=== PATIENT | female | born 1940 | race Hispanic/Latino ===

== ENCOUNTER → 2023-05-20 | Outpatient (CLI) | payer MEDICARE ==
[~2023-05-20] MED LIST: AEC81 PO; AMLO-258 PO; FURO40TA5 PO; IOHEXOL 350 MG/ML 100ML INFUS..BTL IV ONE; IRBE300T18 PO; METOPROLOL TARTRATE 1 MG/ML 5ML VIAL IV ONE; MONT-39 PO; SIMV10TA97 PO
== END | disposition home or self-care (01) ==
LOC: RAH 08:04
PROVIDERS: ATTEND Internal Medicine Cardiovascular Disease
DX: I20.9 Angina pectoris, unspecified (principal)
CPT/HCPCS: 75574; J3490; Q9967

== ENCOUNTER → 2025-01-30 | Outpatient (CLI) | payer MEDICARE ==
[~2025-01-30] MED LIST changes: -IOHEXOL 350 MG/ML 100ML INFUS..BTL IV ONE; -IRBE300T18 PO; +IRBE300T26 PO; -METOPROLOL TARTRATE 1 MG/ML 5ML VIAL IV ONE
--- NOTE | 2025-01-30 14:40 | HMCIMG ---
CT ABDOMEN PELVIS WITHOUT CONTRAST Clinical Information: Other microscopic hematuria PROTOCOL: Routine noncontrast helical scanning of the abdomen and pelvis was performed at 5mm collimation. Findings: No evidence of nephro or ureterolithiasis is found. No hydronephrosis or ureteral dilatation is seen. The lung bases are clear. The spleen, pancreas, gallbladder and adrenal glands are unremarkable. The liver is unremarkable. It shows no focal masses. The appendix is unremarkable. There is diverticulosis of the colon particularly involving the sigmoid colon. There are no acute inflammatory changes to suggest diverticulitis. The small and large bowel and pelvic viscera are otherwise unremarkable. The bony and vascular structures are unremarkable for the patient's age. IMPRESSION: Diverticulosis of the colon particularly involving the sigmoid. Otherwise negative CT SCAN OF THE ABDOMEN AND PELVIS. NO RENAL STONES. NO ACUTE PATHOLOGY OR INFLAMMATION SEEN. This study was performed using dose reduction techniques to include automated exposure control and/or adjustment of the mA and/or kV according to patient size.
== END | disposition home or self-care (01) ==
LOC: RAH 12:37
PROVIDERS: ATTEND Urology
DX: K57.30 Diverticulosis of large intestine without perforation or abscess without bleeding (principal); R31.29 Other microscopic hematuria
CPT/HCPCS: 74176